=== PATIENT | female | born 1980 | race Caucasian/White ===

== ENCOUNTER 2025-02-14 09:21 | Outpatient (AMB) | payer BC, SELFPAY ==
--- NOTE | 2025-02-14 09:22 | A.OFFPC_ITS ---
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 Allergies bacitracin [From Polysporin(bacitracin base)] Allergy (Verified 02/14/25 09:46) Rash polymyxin B [From Polysporin(bacitracin base)] Allergy (Verified 02/14/25 09:46) Rash Sulfa (Sulfonamide Antibiotics) Allergy (Verified 02/14/25 09:46) Rash Tobacco use date assessed: 02/14/25 Dental Screening Dental Screen Date: 02/14/25 Did you have a dental visit in the last 12 months?: Yes Did you have a dental problem in the last 6 months where you did not have access to dental care?: No Was dental information given to patient?: Patient has dentist HPI HPI Comments History of Present Illness Details 44-year-old female with a past medical h istory of acne presents to establish care and have a physical exam. She is overdue. She works at [employer]. She needs a referral to [facility]. She has seen there for skin exams and acne. Denies history of skin cancer. Due for mammogram ordered. 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 Endorses family history of colon cancer. Maternal grandfather was in his 70s. Paternal uncle was under 50 years old, but she has no first-degree relatives or family history of polyposis or Mcqueen syndrome. Initial screening colonoscopy recommended age 45 years based on current guidelines. Tdap overdue. Administered. Reviewed importance of eye and dental exams. Patient agreeable to fasting labs. ROS: Constitutional: No unexplained weight loss, fever, chills, fatigue or night sweats. Eyes: No vision changes, blurry vision, double vision, eye pain, eye redness, eye discharge. ENT: No hearing loss, sneezing, congestion, runny nose or sore throat. Respiratory: No shortness of breath, cough or sputum production. Cardiovascular: No chest pain, chest pressure or chest discomfort. No palpitations or pedal edema. Gastrointestinal: No anorexia, nausea, vomiting or diarrhea. No abdominal pain or blood in stool. Genitourinary: No dysuria, hematuria, urinary frequency. Neurologic: No headache, dizziness, syncope, unilateral weakness, ataxia, numbness or tingling in the extremities. Musculoskeletal: No muscle pain, back pain, joint pain or swelling. Hematologic/Lymphatics: No bleeding or bruising. No painful lymph nodes. Skin: +acne Endocrine: No cold or heat intolerance. No polyuria or polydipsia. Psychiatric: No depression or anxiety. No SI/HI. Physical exam: Constitutional: Alert, in no distress. Head: Normocephalic. Eyes: Pupils are equal, round and reactive to light. Extraocular muscles intact. Ear, Nose and Throat: Canals clear. TMs normal. Normal nasal mucosa. No nasal discharge. No oral lesions. Neck: Supple, Full range of motion. No lymphadenopathy. No palpable thyroid masses. Respiratory: Clear to auscultation. Cardiovascular: S1 S2 regular. No murmurs. Gastrointestinal: Abdomen soft, non-tender, non-distended. Normal bowel sounds. No palpable masses. Neurologic: No focal neurological deficits. Symmetric patellar reflexes. Moves all extremities spontaneously. Sensation intact bilaterally. Skin: No rashes Musculoskeletal: No gross deformities. Normal range of motion. Extremities: Warm and well perfused. No clubbing, cyanosis or edema. Intact peripheral pulses bilaterally. Psychiatric: Normal mood and affect [facility] Medical History (Updated 02/14/25 @ 10:01 by SID Andrew) Routine physical examination Screening for cardiovascular condition Acne Acne vulgaris Family History (Updated 02/14/25 @ 13:52 by SID Andrew) Mother Hypertension Father Hypertension Lymphoma Paternal Grandfather Diabetes Paternal Uncle Colon cancer Maternal Grandfather Colon cancer Social History (Updated 02/14/25 @ 09:51 by Renae Nelson MA) Housing: House Alcohol intake: current Patient Tobacco Use Status: Never used Tobacco e-Cigarette/Vaping Use: Currently Using Second Hand Smoke Exposure: No Substance Use Type: Marijuana service: No Current occupational status: employed 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 1. Little interest or pleasure in doing things: not at all 2. Feeling down, depressed, or hopeless: not at all 3. Trouble falling or staying asleep, or sleeping too much: not at all 4. Feeling tired or having little energy: not at all 5. Poor appetite or overeating: not at all 6. Feeling bad about yourself - or that you are a failure or have let yourself or your family down: not at all 7. Trouble concentrating on things, such as reading the newspaper or watching television: not at all 8. Moving or speaking so slowly that other people could have noticed. Or the opposite - being so fidgety or restless that you have been moving around a lot more than usual: not at all 9. Thoughts that you would be better off or of hurting yourself in some way: not at all Total score: 0 Depression Screening Interpretation: Negative Depression Screening Done: Yes 16407 - PHQ-9 Billing: Yes Source: Developed by Drs. Simon Stephens, Jojo James, Joseluis Foreman and colleagues, with an educational dago from [employer]. Thrive Questionnaire Date Thrive assessed: 02/14/25 I am a: Patient What is your living situation today?: I have a steady place to live Within the past 12 months, did the food you bought not last and you didn't have the money to get more?: Never true Within the past 12 months, did you worry whether your food would run out before you got money to buy more?: Never true Do you have trouble paying for medicines?: No Do you have trouble getting transportation to medical appointments?: No Do you have trouble paying your heating and electricity bill?: No Do you have trouble taking care of your child, family member or friend?: No Do you have trouble with day-to-day activities such as bathing, preparing meals, shopping, managing finances, etc.?: No Are you currently unemployed and looking for a job?: No Are you interested in more education?: No Please select the resources that you would like help with: None Currently or been in a relationship where the following occur: No concerns reported THRIVE Score: 0 AUDIT C Alcohol Use Questionnaire (AUDIT-C) 1. How often do you have a drink containing alcohol?: 2-4 times a month 2. How many drinks containing alcohol do you have on a typical day when you are drinking?: 5 or 6 3. How often do you have six or more drinks on one occasion?: Monthly Total Score: 6 Score Reviewed/Action Taken: Yes ROBERT-7 AMB Questionnaire ROBERT-7 Date ROBERT - 7 assessed: 02/14/25 Feeling nervous, anxious, or on edge: 0 = Not at all Not being able to stop or control worryin = Not at all Worrying too much about different things: 0 = Not at all Trouble relaxin = Not at all Being so restless that it is hard to sit still: 0 = Not at all Becoming easily annoyed or irritable: 0 = Not at all Feeling afraid as if something awful might happen: 0 = Not at all Total ROBERT-7 score (0-4 normal; 5-9 mild; 10-14 moderate; 15-21 severe): 0 Source: Developed by Drs. Simon Stephens, Jojo James, Joseluis Foreman and colleagues, with an educational dago from [employer]. ROBERT-7 Assessment Billing ROBERT-7 Assessment Tool: ROBERT-7 Assessment 89462 Physical exam (Primary Care) Vital Signs: Last Vital Signs Temp 97.7 F 02/14/25 09:51 Pulse 64 02/14/25 09:51 BP 120/82 02/14/25 09:51 Pulse Ox 99 02/14/25 09:51 Oxygen Delivery Method Room Air 02/14/25 09:51 BMI result Body Mass Index 26.3 Tobacco/Smoking Status: Tobacco use Status Tobacco use date assessed 02/14/25 02/14/25 09:54 Patient Tobacco Use Status Never used Tobacco 02/14/25 09:54 e-Cigarette/Vaping Use Currently Using 02/14/25 09:54 PHQ-9: PHQ-9 Score PHQ-9: Total score 0 02/15/25 12:59 Depression Screening Interpretation: Negative Thrive Assessment: Date of Thrive Assessment Date Thrive assessed 02/14/25 02/14/25 09:25 Currently or been in a relationship where the following occur: No concerns reported Immunizations Boostrix Tdap 2.5 Lf unit-8 mcg-5 Lf/0.5 mL intramuscular syringe Performing Provider: SDI Andrew Performing Location: [facility] Administered by: Renae Nelson MA on 02/14/25 10:47 Dose Route Admin Location Dispensed Lot Number Expiration Date NDC Target Worker 0.5 mL IM Left Deltoid 0.5 mL [id number] 05/06/27 [id number] [employer] VIS Given Date VIS Provided VIS Publication Date 02/14/25 Single Vaccine 21 Eligibility Eligibility Date Funding Source Not [facility] [place] Eligible 02/14/25 Private Coding Level of Care Code New Pt Prev Care 40-64y(81220) Diagnoses Routine physical examination Z00.00 Screening for cardiovascular condition Z13.6 Additional Codes ROBERT-7 Assessment Billing - ROBERT-7 Assessment Tool: ROBERT-7 Assessment 04381 ([id number]) PHQ-9 - 33802 - PHQ-9 Billing: Yes ([id number]) Assessment & Plan Assessment & Plan (1) Routine physical examination: Code(s): Z00.00 - Encounter for general adult medical examination without abnormal findings Category: Medical Plan: Patient is seen today for a routine physical. 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 - Screening for colon cancer - Blood pressure screening - Cholesterol screening - Osteoporosis prevention including calcium/vitamin D intake, weight bearing exercise & smoking cessation - Nutritional and exercise counseling - Counseling of injury prevention including fire prevention, smoke alarms and seat belt usage - Screening for depression - Education about skin cancer - Recommendations about immunizations - Recommendation of an eye exam - Screening for substance abuse - Genetic cancer risk screening (2) Screening for cardiovascular condition: Code(s): Z13.6 - Encounter for screening for cardiovascular disorders Category: Medical Plan Return for physical exam in 1 year. Orders: Orders TDaP Immunization 02/14/25 Z23 - Encounter for immunization MM screening mammo BI 02/14/25 Z12.31 - Encounter for screening mammogram for malignant neoplasm of breast Lipid Panel 02/14/25 Z00.00 - Encounter for general adult medical examination without abnormal findings, Z13.6 - Encounter for screening for cardiovascular disorders Comprehensive Met. 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
[2025-02-14 09:51] VITALS: BP 120/82; PULSE 64; TEMP 36.5; O2SAT 99; BMI 26.3
== END 2025-02-14 10:15 | disposition home or self-care (01) ==
LOC: HO.HMCFM 09:21
PROVIDERS: PCP Physician Assistant Medical; Visit Provider Physician Assistant Medical
DX: Z00.00 Encounter for general adult medical examination without abnormal findings (principal); Z13.6 Encounter for screening for cardiovascular disorders

== ENCOUNTER → 2025-02-14 09:21 | Outpatient (BNVA) | payer BC, SELFPAY | PROVIDERS: PCP Physician Assistant Medical; Visit Provider Physician Assistant Medical | DX: Z00.00 Encounter for general adult medical examination without abnormal findings (principal); Z23 Encounter for immunization; L70.9 Acne, unspecified; Z13.31 Encounter for screening for depression; Z13.30 Encounter for screening examination for mental health and behavioral disorders, unspecified | CPT/HCPCS: 90471; 90715; 96127 ==

== ENCOUNTER 2025-02-14 10:28 | Outpatient (REF) | payer BC, SELFPAY ==
[2025-02-14 14:31] LABS: Hematocrit 37.8 % (37.0-47.0); Hemoglobin 12.5 g/dl (12.0-16.0); Mean Corpuscular HGB Conc 33.1 g/dl (31.0-35.0); Mean Corpuscular Hemoglobin 32.5 pg (27.0-33.0); Mean Corpuscular Volume 98.2 fL (80.0-98.0); Mean Platelet Volume 10.5 fL (9.4-12.3); Platelet Count 233 X10*3/uL (160-400); Red Blood Count 3.85 X10*6/uL (4.20-5.50); Red Cell Distribution Width 13.1 % (11.0-16.0); White Blood Count 3.8 X10*3/uL (4.8-10.8)
[2025-02-14 14:51] LABS: Alanine Aminotransferase 21 U/L (0-31); Albumin Level 4.2 g/dL (3.5-5.0); Alkaline Phosphatase 43 U/L (39-117); Anion Gap 10 (12-20); Aspartate Amino Transferase 21 U/L (5-31); Bilirubin Total 0.5 mg/dL (0.0-1.0); Blood Urea Nitrogen 11 mg/dL (9-16); Calcium 8.9 mg/dL (8.4-10.2); Carbon Dioxide 30 mmol/L (22-29); Chloride 106 mmol/L (96-108); Cholesterol 174 mg/dL (<200); Estimated Glomerular Filt Rate > 60; Glucose Random 102 mg/dL (60-115); HDL Cholesterol 66 mg/dL (>40); LDL Cholesterol Calculated 94 mg/dL (<100); Potassium 3.7 mmol/L (3.3-5.1); Sodium 142 mmol/L (135-145); Total Protein 6.4 g/dL (6.5-8.0); Triglycerides 74 mg/dL (<150)
== END 2025-02-14 10:29 | disposition home or self-care (01) ==
LOC: HO.WFDLDS 10:28
PROVIDERS: Visit Provider Physician Assistant Medical
DX: Z00.00 Encounter for general adult medical examination without abnormal findings (principal); Z13.6 Encounter for screening for cardiovascular disorders
CPT/HCPCS: 36415; 80053; 80061; 85027

== ENCOUNTER 2025-03-15 12:36 | Outpatient (REF) | payer BC, SELFPAY | END 2025-03-15 12:37 | disposition home or self-care (01) | LOC: HO.MAMMO 12:36 | PROVIDERS: PCP Physician Assistant Medical; Visit Provider Family Medicine | DX: Z12.31 Encounter for screening mammogram for malignant neoplasm of breast (principal) | CPT/HCPCS: 77063; 77067 ==

== ENCOUNTER → 2025-03-15 13:00 | Outpatient (BNV) | payer BC, SELFPAY | PROVIDERS: PCP Physician Assistant Medical; Visit Provider Radiology Body Imaging | DX: Z12.31 Encounter for screening mammogram for malignant neoplasm of breast (principal) | CPT/HCPCS: 77063; 77067 ==

== ENCOUNTER 2025-06-30 09:10 | Outpatient (AMB) | payer BC, SELFPAY ==
--- NOTE | 2025-06-30 09:10 | A.OFFVIS_ITS ---
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: General Engineering Teacher Present (Dilcia) Accompanied by: Self / Same As Patient Allergies bacitracin (From Polysporin(bacitracin base)) Allergy (Verified 06/30/25 09:16) Rash polymyxin B (From Polysporin(bacitracin base)) Allergy (Verified 06/30/25 09:16) Rash Sulfa (Sulfonamide Antibiotics) Allergy (Verified 06/30/25 09:16) Rash Medication List - Last Reconciled 06/30/25 by Marybeth Garcia CNM benzoyl peroxide 10% (Acne Treatment (benzoyl peroxide)) 1 appl topical DAILY Is last menstrual period known: Yes Last menstrual period: 06/26/25 Post menopausal: No Patient : No HPI HPI 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 She used to get tool repairer bench care at [place] it has been a few years. She has no gynecological problems whatsoever. She is with her for 14 years they do not use any method of control they have not gotten up to this point so they kind of figured probably will not happen by the time her turns 52 in a couple of years if they have not he may get a vasectomy just to be sure at that point if she got at this point they would welcome it. She eats very healthy and lost about 40 lb this year by cutting out sweets and dairy and any extraneous beverage calories and eating mainly protein and veggies. They have a dog and they are very active and go hiking. She recently had her 1st mammogram in March and it came out fine there is a family history of colon cancer and she will be talking about that and getting screened in the future when she next sees her primary. She did have some abnormal Pap smear years ago but follow-up testing was fine, which is why she did not seek care any time sooner. [facility] Medical History IFG (impaired fasting glucose) Abnormal CBC Routine physical examination Screening for cardiovascular condition Acne Acne vulgaris Family History Mother Hypertension Father Hypertension Lymphoma Paternal Grandfather Diabetes Paternal Uncle Colon cancer Maternal Grandfather Colon cancer Social History (Updated 02/14/25 @ 09:51 by Renae Nelson MA) Housing: House Alcohol intake: current Patient Tobacco Use Status: Never used Tobacco e-Cigarette/Vaping Use: Currently Using Second Hand Smoke Exposure: No Substance Use Type: Marijuana service: No Current occupational status: employed 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 [employer] Current occupational exposures/hazards: No Cognitive needs: No Hearing needs: No Vision needs: No Female Reproductive History Menstrual Age of Menarche: 14 Date of last menstrual period: 06/26/25 control method: none Total pregnancies: 1 History of abnormal pap smear: Yes Date of Mammogram: 03/15/25 (bi rad 1) Physical Exam Const General: healthy appearing, comfortable, no acute distress, well developed and alert Nutritional Appearance: average body habitus Orientation/consciousness: patient oriented x3 Limitations: no limitations HEENT Head: Yes normocephalic Neck Neck: Yes normal visual inspection Chest Chest palpation & inspection: normal inspection of the chest Breast/axilla inspection: normal inspection of the breasts and normal inspection of the axillae Breast/axilla palpation: normal palpation of the breasts and normal palpation of the axillae Resp Effort & Inspection: normal respiratory effort GI Inspection: Yes normal to inspection, No Abdominal wall edema and No distended Palpation (GI): Soft to palpation and nontender General: Yes bladder normal to palpation External Female Exam: normal external appearance and normal appearance of the urethra Speculum Exam - Vagina: normal appearance of the vagina, normal palpation and normal vaginal discharge Speculum Exam - Cervix: normal appearance of the cervix, normal palpation and nontender Bimanual exam- vagina & uterus: normal bimanual exam, normal palpation, uterine size normal, bladder normal to palpation, consistency normal, normal palpation, uterine mobility normal, uterine shape normal, No Cervical tenderness present, non-tender and no cervical motion tenderness Bimanual Exam- Adnexa, other: normal adnexae, no masses, normal and No adnexal tenderness Neuro General: patient oriented x3 Assessment & Plan Assessment & Plan (1) Well woman exam with routine gynecological exam: Code(s): Z01.419 - Encounter for gynecological examination (general) (routine) without abnormal findings Category: Medical (2) Cervical cancer screening: Code(s): Z12.4 - Encounter for screening for malignant neoplasm of cervix Category: Medical Plan -----Discussed in this visit the following: healthy balanced diet, regular and consistent exercise, getting recommended health screens, doing the best she can for her particular health concerns, kegel exercises, pap smear screening and followup recommendations, mammography screening and SBE, normal changes in cycles in her life stage--- . Discussed issues to be aware of at this time of life which she is already doing with her very healthy eating and sleep hygiene and exercise. And she will be following up with her primary care she has discovered the connection between dairy and her acne and she has cut out most dairy with beneficial effects so she is going to be looking at adding in calcium and vitamin-D to make up for that. She will be looking into colon cancer screening as well she is already up-to-date on her mammograms and we will continue with that yearly. Discussed jignesh menopausal changes to expect and ways of managingc, RTC 1 year Coding Level of Care Code New Pt Prev Care 40-64y(74809) Diagnoses Well woman exam with routine gynecological exam Z01.419 Cervical cancer screening Z12.4
[2025-06-30 09:17] VITALS: BP 118/84; BMI 24.7
== END 2025-06-30 11:17 | disposition home or self-care (01) ==
LOC: HO.HWSM 09:10
PROVIDERS: PCP Physician Assistant Medical; Visit Provider Advanced Practice Midwife
DX: Z01.419 Encounter for gynecological examination (general) (routine) without abnormal findings (principal)
CPT/HCPCS: 99386; 99459

== ENCOUNTER 2025-06-30 09:10 | Outpatient (REF) | payer BC, SELFPAY ==
--- OUTSIDE RECORDS SUMMARY | 2025-06-30 16:30 | XMS_ITS ---
Author Name [facility] Organization Unknown Care Team Organization Name Specialty Phone Email Start Date End Da te [facility] Toshia [facility] 07/16/2022 4
== END 2025-06-30 09:11 | disposition home or self-care (01) ==
LOC: HO.LNP 09:10
PROVIDERS: PCP Physician Assistant Medical; Visit Provider Advanced Practice Midwife
DX: Z01.419 Encounter for gynecological examination (general) (routine) without abnormal findings (principal)
CPT/HCPCS: 87626; 88175